=== PATIENT | female | born 1955 | race Caucasian/White ===

== ENCOUNTER 2016-07-03 11:48 | Emergency (ER) | payer MEDICAID ==
[~2016-07-03] VITALS: Ht 152.4 cm; Wt 97.0 kg
[2016-07-03 11:51] VITALS: Ht 152.4 cm; Wt 97.0 kg
--- NOTE | 2016-07-03 12:57 | ERD ---
ER Documentation Chief Complaint Date/Time DATE: 07/03/16 TIME: 12:56 Chief Complaint pain when swallows after eating tortilla chips yesterday HPI 61-year-old female presents emergency department with right-sided anterior neck pain after eating until started yesterday at 10:30 PM. This patient states that while she was eating she felt sharp pain, and she still feels like there might be a chip or some kind of food substance stuck in her neck at this time. She is able to swallow her own secretions. She has not had any hemoptysis, voice changes or drooling. She denies any fever, chills, pharyngitis symptoms. She denies any nausea vomiting, chest pain or shortness of breath. ROS All systems reviewed and are negative except as per history of present illness. Medications Home Meds Active Scripts Omeprazole* (Omeprazole*) 20 Mg Capsule.dr, 20 MG PO BID, #60 Prov:LUKE RUTHERFORD PA-C 07/03/16 Ranitidine Hcl* (Zantac*) 150 Mg Tablet, 150 MG PO BID Y for EPIGASTRIC PAIN, # 30 TAB Prov:LUKE RUTHERFORD PA-C 07/03/16 Lidocaine (Lidocaine Viscous) 100 Ml Soln, 10 ML PO Q6H, #100 ML Prov:LUKE RUTHERFORD PA-C 07/03/16 PMhx/Soc Medical and Surgical Hx: pt denies Medical Hx, pt denies Surgical Hx Hx Alcohol Use: No Hx Substance Use: No Hx Tobacco Use: No Smoking Status: Never smoker Physical Exam Vitals Vital Signs Date Time Temp Pulse Resp B/P Pulse Ox O2 Delivery O2 Flow Rate FiO2 07/03/16 11:51 98.1 77 20 144/78 98 Physical Exam General: Well-developed, well-nourished. The patient appears in no acute distress. HEENT: Head is normocephalic, atraumatic. No scleral icterus. Pupils are equal , round, and reactive. Oral mucous membranes are moist. No pharyngeal erythema. No trismus voice changes or drooling. Neck: Supple. Tender lymphadenopathy on the right anterior chain, there are no masses. Lungs: Clear to auscultation. Normal air movement. Heart: Regular rate and rhythm. S1 and S2 are normal. No murmurs, gallops, or rubs. Abdomen: Soft, nontender, nondistended. Bowel sounds are normoactive. Extremities: No clubbing or cyanosis. Normal pulses. Moving extremities x 4. No weakness. Neurologic: Alert and oriented 3. No focal deficits. Skin: Normal turgor. No rash or lesions. Results 24 hrs PROCEDURE: CT soft tissue neck without contrast CLINICAL INDICATION: Right foreign body after eating, difficulty swelling TECHNIQUE: CT of the soft tissues of the neck without contrast was performed on a multidetector CT scanner, with multiplanar reformats. One or more of the following dose reduction techniques were used: Automated exposure control, adjustment in mA and / or kV according to patient size, use of iterative reconstructive technique. CTDIvol = 9 mGy and DLP = 196 mGy-cm. COMPARISON: None available FINDINGS: No foreign body, soft tissue edema, fluid collection of gas is identified throughout the soft tissue neck structures. The pharynx, and larynx are unremarkable. Thyroid gland is unremarkable. The imaged upper esophagus appears thickened. The parapharyngeal and retropharyngeal spaces are clear. There are scattered lymph nodes in the bilateral submandibular - submental internal jugular chain and posterior cervical triangle regions which do not meet size criteria. The parotid and submandibular glands are unremarkable. The imaged galvanizer spaces are symmetric. The imaged skull base is intact. The perivertebral space is unremarkable. Oral cavity structures are grossly unremarkable. There is mild right maxillary sinus mucosal thickening. Cervical spondylosis with mild grade 1 anterolisthesis at C7-T1 and ossification of the posterior longitudinal ligament at C4-5 - C5-6 are noted. There is moderate to severe appearing central canal stenosis at C4-5 and there is moderate central canal stenosis at C5-6. Also noted is foraminal narrowing, which appears severe at C3-4 on the right, C4-5 bilaterally, and C5-6 on the left. Visualized lung apices are clear. IMPRESSION: 1. No foreign body or acute abnormality identified throughout the soft tissues of the neck. 2. Thickened appearing upper esophagus. Correlation with endoscopy is advised. 3. Cervical spondylosis and ossification of the posterior longitudinal ligament at C4-5 to C5-6, with moderate - severe central canal stenosis at C4-5 , at least moderate central canal stenosis at C5-6, and significant multilevel foraminal narrowing. Follow up with MRI is advised. RPTAT: VV .Jordy Sin MD, MD Date Time Electronically viewed and signed by .Jordy Sin MD, on 07/03/2016 13:56 .O/ CC: LUKE RUTHERFORD PA-C Current Medications Medications (Trade) Dose Ordered Sig/Dickson Route PRN Reason Start Time Stop Time Status Last Admin Dose Admin Lidocaine (Xylocaine (Viscous)) 15 ml ONCE ONCE PO 07/03/16 13:00 07/03/16 13:01 DC 07/03/16 13:12 Procedures/MDM 61-year-old female comes emergency department with neck pain, patient complains of right anterior neck pain after eating, status. She was given this is lidocaine in the emergency department states that her pain is much better. She has no history that would be concerning for an upper GI bleed, or Boerhaave's. She has not had any vomiting, chest pain or shortness breath associated with this. Her CT scan of the neck was normal at this time, there is no foreign body , no subcutaneous emphysema, no masses, no no abscess. CT of the soft tissue neck was performed today, there was evidence of esophageal thickening, she will be treated for esophagitis given her history of eating disorder, and late night. She will be given information for referral to see a fur cutting machine operator for follow-up endoscopy. Given that she is hemodynamically stable, does not show any evidence of upper GI bleed, I believe that the patient can follow up and do an outpatient endoscopy. She was given RESULTS today, I was given dietary precautions as well and understands and agrees to the plan. Patient's blood pressure was elevated (>120/80) but appears stable without evidence of hypertension emergency or urgency. The patient was counseled about the risks of hypertension and urged to pursue outpatient monitoring and therapy within a week with their primary care physician. Departure Diagnosis: Primary Impression: Esophageal abrasion Condition: Good LUKE RUTHERFORD PA-C July 03, 2016 12:57
[2016-07-03] MEDS ORDERED: LIDOCAINE 2% VISC 15 ML CUP PO ONE (13:00)
--- NOTE | 2016-07-03 13:56 | RADRPT ---
PROCEDURE: CT soft tissue neck without contrast CLINICAL INDICATION: Right foreign body after eating, difficulty swelling TECHNIQUE: CT of the soft tissues of the neck without contrast was performed on a multidetector CT scanner, with multiplanar reformats. One or more of the following dose reduction techniques were us ed: Automated exposure control, adjustment in mA and / or kV according to patient size, use of itera tive reconstructive technique. CTDIvol = 9 mGy and DLP = 196 mGy-cm. COMPARISON: None available FINDINGS: No foreign body, soft tissue edema, fluid collection of gas is identified throughout the soft tissue neck structures. The pharynx, and larynx are unremarkable. Thyroid gland is unremarkable. The im aged upper esophagus appears thickened. The parapharyngeal and retropharyngeal spaces are clear. T here are scattered lymph nodes in the bilateral submandibular - submental internal jugular chain and posterior cervical triangle regions which do not meet size criteria. The parotid and submandibular glands are unremarkable. The imaged hot tar roofer helper spaces are symmetric. The imaged skull base is int act. The perivertebral space is unremarkable. Oral cavity structures are grossly unremarkable. The re is mild right maxillary sinus mucosal thickening. Cervical spondylosis with mild grade 1 anterol isthesis at C7-T1 and ossification of the posterior longitudinal ligament at C4-5 - C5-6 are noted. There is moderate to severe appearing central canal stenosis at C4-5 and there is moderate central canal stenosis at C5-6. Also noted is foraminal narrowing, which appears severe at C3-4 on the righ t, C4-5 bilaterally, and C5-6 on the left. Visualized lung apices are clear. IMPRESSION: 1. No foreign body or acute abnormality identified throughout the soft tissues of the neck. 2. Thickened appearing upper esophagus. Correlation with endoscopy is advised. 3. Cervical spondylosis and ossification of the posterior longitudinal ligament at C4-5 to C5-6, wi th moderate - severe central canal stenosis at C4-5, at least moderate central canal stenosis at C5- 6, and significant multilevel foraminal narrowing. Follow up with MRI is advised. RPTAT: VV .Jordy Sin MD, MD Date Time Electronically viewed and signed by .Jordy Sin MD, MD on 07/03/2016 13:56 .O/
[2016-07-03] MEDS ORDERED: LIDO20SO19 PO (14:08)
[2016-07-03] MEDS ORDERED: OMEP20CA16 PO (14:10)
[2016-07-03] MEDS ORDERED: RANI150T9 PO (14:10)
== END 2016-07-03 14:43 | disposition home or self-care (01) ==
LOC: FTE 11:48
DX: S27.818A Other injury of esophagus (thoracic part), initial encounter (principal); X58.XXXA Exposure to other specified factors, initial encounter; Y92.9 Unspecified place or not applicable
CPT/HCPCS: 70490; Z7502; Z7610